=== PATIENT | female | born 1990 | race Caucasian/White ===

== ENCOUNTER 2021-12-26 05:33 | Emergency (ER) | payer OTHER ==
[~2021-12-26 05:33] MED LIST: COLACE 100MG C100 MG PO; FERROUS SULFAT325 M2 PO; IBUPROFEN600 MG PO
[2021-12-26] MEDS ORDERED: AMOX TR-K CLV1 EAC4 PO (06:06)
== END 2021-12-26 06:25 | disposition home or self-care (01) ==
LOC: ER1 05:33
DX: O99.830 Other infection carrier state complicating pregnancy (principal); K04.7 Periapical abscess without sinus; K02.9 Dental caries, unspecified; Z3A.39 39 weeks gestation of pregnancy
CPT/HCPCS: 99282

== ENCOUNTER 2021-12-29 05:50 | Inpatient (IN) | payer OTHER ==
[~2021-12-29] VITALS: Ht 162.6 cm; Wt 76.2 kg
[~2021-12-29 05:50] MED LIST changes: +AMOX TR-K CLV1 EAC4 PO
[2021-12-29 07:10] LABS: HEMOGLOBIN 7.9 gm/dl (12.3-15.3); RED BLOOD COUNT 4.45 M/UL (4.00-5.10); WHITE BLOOD COUNT 7.6 K/UL (4.5-11.0)
[2021-12-29] MEDS ORDERED: DOCUSATE SODIU250 MG PO (11:17)
[2021-12-29] MEDS ORDERED: HYDROCODONE-AC1 EACH PO (11:17)
[2021-12-29] MEDS ORDERED: IBUPROFEN600 MG PO (11:17)
[2021-12-30 05:37] LABS: HEMOGLOBIN 6.4 gm/dl (12.3-15.3)
== END 2022-01-01 17:14 | disposition home or self-care (01) | DRG 788 ==
LOC: OB 05:50
PROVIDERS: Obstetrics & Gynecology; ADMIT Obstetrics & Gynecology
PROC: 4A1HXCZ Monitoring of Products of Conception, Cardiac Rate, External Approach (ICD-10-PCS; 2021-12-29)
PROC: 10D00Z1 Extraction of Products of Conception, Low, Open Approach (ICD-10-PCS; principal; 2021-12-29 10:31)
DX: O32.1XX0 Maternal care for breech presentation, not applicable or unspecified (principal); O99.824 Streptococcus B carrier state complicating childbirth; Z3A.40 40 weeks gestation of pregnancy; Z37.0 Single live birth; Z20.822 Contact with and (suspected) exposure to COVID-19; O99.334 Smoking (tobacco) complicating childbirth; F17.210 Nicotine dependence, cigarettes, uncomplicated; O77.0 Labor and delivery complicated by meconium in amniotic fluid; O90.81 Anemia of the puerperium; D64.9 Anemia, unspecified; Z28.311 Partially vaccinated for COVID-19
CPT/HCPCS: 36415; 36600; 80307; 81001; 82800; 85014; 85018; 85025; 90471; 90715; 96372; C9113; J0690; J1885; J2250; J2274; J2370; J2405; J2590; J2704; J3010

== ENCOUNTER 2022-04-11 17:53 | Emergency (ER) | payer OTHER ==
[~2022-04-11 17:53] MED LIST changes: +DOCUSATE SODIU250 MG PO; +HYDROCODONE-AC1 EACH PO
[2022-04-11 20:06] LABS: BUN/CREATININE RATIO 18 (0-10)
[2022-04-11 23:54] LABS: RED BLOOD COUNT 3.11 M/UL (4.00-5.10); WHITE BLOOD COUNT 8.3 K/UL (4.5-11.0)
[2022-04-11 23:59] LABS: HEMOGLOBIN 6.3 gm/dl (12.3-15.3)
[2022-04-12] MEDS ORDERED: FERROUS SULFAT325 MG PO (00:16)
[2022-04-12] MEDS ORDERED: OMNICEF 300 MG300 MG PO (00:55)
== END 2022-04-12 01:25 | disposition home or self-care (01) ==
LOC: ER1 17:53
PROVIDERS: Family Medicine; Physician Assistant
DX: N39.0 Urinary tract infection, site not specified (principal); D64.9 Anemia, unspecified; R19.7 Diarrhea, unspecified; F17.200 Nicotine dependence, unspecified, uncomplicated; Z90.89 Acquired absence of other organs; Z90.49 Acquired absence of other specified parts of digestive tract; Z87.442 Personal history of urinary calculi
CPT/HCPCS: 80053; 81001; 83605; 84703; 85025; 96374; 96375; 99284; J0696; J1885; J2405